=== PATIENT | male | born 1955 | race Caucasian/White ===

== ENCOUNTER 2018-02-08 07:38 | Day surgery (SDC) | payer BC ==
[~2018-02-08 07:38] MED LIST: Lidocaine 2% 5 ML SDV ONE; Midazolam 1 MG/ML 2 ML SDV ONE; Propofol 200 MG/20 ML SDV ONE; fentaNYL 100 MCG/2 ML SDV ONE
[2018-02-08] MEDS ORDERED: Sodium Chloride 0.9% 5 ML Syringe FLUSH PRN (08:00)
[2018-02-08] MEDS: Sodium Chloride 0.9% 1,000 ML IV SCH (08:14)
[2018-02-08] MEDS ORDERED: fentaNYL 100 MCG/2 ML SDV IV ONE (09:01)
[2018-02-08] MEDS ORDERED: Midazolam 1 MG/ML 2 ML SDV IV ONE (09:01)
[2018-02-08] MEDS ORDERED: Propofol 200 MG/20 ML SDV IV ONE (09:01)
[2018-02-08] MEDS ORDERED: Lidocaine 2% 5 ML SDV IV ONE (09:01)
--- NOTE | 2018-02-08 09:02 | PCM.PN ---
- General Info Date of Service: 02/08/18 - Review of Systems Systems Review Comment:: 62-year-old male referred for upper and lower endoscopy. He has a history of unexplained weight loss as well as change in bowel habits. He has never had a prior colonoscopy. He also has noticed some hematochezia. He is medically stable to proceed today with no significant recent changes to his history and physical which are reviewed. I discussed the proposed upper and lower endoscopy with the patient. Risks such as but not limited to bleeding and GI injury reviewed. He agrees to proceed. - Patient Data Vitals - Most Recent: Last Vital Signs Temp 98.1 F 02/08/18 07:56 Pulse 80 02/08/18 07:56 Resp 16 02/08/18 07:56 BP 140/75 02/08/18 07:56 Pulse Ox 97 02/08/18 07:56 Weight - Most Recent: 122.47 kg Med Orders - Current: Current Medications Sodium Chloride (Normal Saline) 1,000 mls @ 50 mls/hr IV ASDIRECTED [facility] Last Admin: 02/08/18 08:14 Dose: 50 mls/hr Sodium Chloride (Syrex Flush) 5 ml FLUSH Q8HR PRN PRN Reason: Keep Vein Open Discontinued Medications Fentanyl (Sublimaze) Confirm Administered Dose 100 mcg .ROUTE .STK-MED ONE Stop: 02/08/18 07:17 Lidocaine (Xylocaine-Mpf 2%) Confirm Administered Dose 5 ml .ROUTE .STK-MED ONE Stop: 02/08/18 07:17 Midazolam HCl (Versed 1 Mg/Ml) Confirm Administered Dose 2 mg .ROUTE .STK-MED ONE Stop: 02/08/18 07:17 Propofol (Diprivan 20 Ml) Confirm Administered Dose 400 mg .ROUTE .STK-MED ONE Stop: 02/08/18 07:17 - Problem List Review Problem List Initiated/Reviewed/Updated: Yes - My Orders Last 24 Hours: My Active Orders 02/07/18 16:17 Resuscitation Status Routine 02/08/18 08:00 Blood Glucose Check, Bedside [RC] UPON Patient to Empty Bladder [RC] ASDIRECTED Peripheral IV Care [RC] . DIRECTED Vital Signs [RC] PER UNIT ROUTINE Sodium Chloride 0.9% [Normal Saline] 1,000 ml IV ASDIRECTED Sodium Chloride 0.9% [Syrex Flush] 5 ml FLUSH Q8HR PRN Peripheral IV Insertion Adult [OM.PC] Routine 02/08/18 08:55 Verify Patient Consent Obtain [RC] ASDIRECTED 02/08/18 Breakfast Nothing Per Oral Diet [DIET] - Assessment Assessment:: Weight loss Change in bowel habits - Plan Plan:: EGD and colonoscopy
--- NOTE | 2018-02-08 10:06 | PCM.OPNOTE ---
- General Post-Op/Procedure Note Date of Surgery/Procedure: 02/08/18 Operative Procedure(s): EGD with biopsy and Colonoscopy with Polypectomy Findings: Mild Reflux esophagitis Sigmoid Colon Polyp Hemorhoids Pre Op Diagnosis: Weight Loss. Change in Bowel Habits Post-Op Diagnosis: Reflux esophagitis. Colon Polyp. Hemorrhoids Anesthesia Technique: [facility] [place] Surgeon: Fab Vora Pathology: Biopsies of Gastric Antrum and Duodenum Colon Polyp Output, Urine Amount: 0 EBL in mLs: 3 Complications: None Condition: Good
--- NOTE | 2018-02-08 15:48 | OR ---
DATE OF SURGERY: 02/08/2018 SURGEON: Fba Vora MD PREOPERATIVE DIAGNOSIS: Weight loss and change in bowel habits. POSTOPERATIVE DIAGNOSIS: Reflux esophagitis, sigmoid colon polyp, and internal hemorrhoids. OPERATION PERFORMED: Esophagogastroduodenoscopy with biopsy and colonoscopy with polypectomy. INDICATIONS FOR SURGERY: This 62-year-old male who has never had previous endoscopy, has been experiencing some symptoms of early satiety and weight loss as well as change in bowel habits. He was referred for upper and lower endoscopy. FINDINGS: On upper endoscopy, the patient does show a mild degree of reflux esophagitis with mild inflammation of the GE junction approximately 35 cm from the incisors. The remainder of the esophagus, stomach, and duodenum appeared normal. During colonoscopy, the patient was noted to have a pedunculated 2 cm polyp in the sigmoid colon 22 cm from the anal verge. The colon was otherwise normal, although the patient did have some moderate-sized internal hemorrhoids. DESCRIPTION OF PROCEDURE: The patient was taken to the operating room. He was given intravenous sedation and with him in the left lateral decubitus position, the esophagus was intubated via a mouth guard under direct visualization. The scope was then carefully advanced through the esophagus, stomach, and on into the duodenum where examination to the third portion was performed. Biopsies of the duodenum were taken to rule out celiac disease. The scope was withdrawn back into the stomach where full examination including retroflexed examination of the fundus was carried out. Biopsies of the antrum were taken to rule out H. pylori. The scope was then withdrawn back to look at the GE junction and biopsies of the GE junction were taken. Examination was completed as the scope was withdrawn and the attention was turned to colonoscopy. Digital rectal exam was performed showing no rectal masses. The Olympus colonoscope was inserted into the rectum. Retroflexed examination of the rectal canal was performed. The scope was then carefully advanced under direct visualization to the sigmoid region where the above-described pedunculated polyp was identified. This was removed with a cautery snare and retrieved into a polyp trap. The scope was then further advanced through the entire length of the colon until the cecum is reached. Cecal acquisition was confirmed by noting the normal internal cecal anatomy including the appendiceal orifice and the ileocecal valve. The light was also noted to transilluminate the abdominal wall in the right lower quadrant. After examining the cecum, the scope was slowly withdrawn sequentially re-examining the colonic segments until the entire colon and rectum have been fully examined. The scope was removed and the patient was taken from the operating room in satisfactory condition. ESTIMATED BLOOD LOSS: 3 mL. COMPLICATIONS: None. PROGNOSIS: Good. /[id number]/MODL
== END 2018-02-08 11:25 | disposition home or self-care (01) ==
LOC: KA.SDS 07:38
PROVIDERS: ATTEND Surgery
DX: R63.4 Abnormal weight loss (principal); R19.4 Change in bowel habit; D12.5 Benign neoplasm of sigmoid colon; K64.8 Other hemorrhoids; K29.50 Unspecified chronic gastritis without bleeding; K20.0 Eosinophilic esophagitis; K21.9 Gastro-esophageal reflux disease without esophagitis; E11.9 Type 2 diabetes mellitus without complications; Z68.34 Body mass index [BMI] 34.0-34.9, adult; Z79.82 Long term (current) use of aspirin; Z79.84 Long term (current) use of oral hypoglycemic drugs; Z79.899 Other long term (current) drug therapy
CPT/HCPCS: 82962; J2250; J2704; J3010; J7030